=== PATIENT | male | born 1975 | race Caucasian/White ===

== ENCOUNTER 2020-03-15 14:58 | Emergency (ER) | payer SELFPAY ==
[~2020-03-15] VITALS: Ht 180.3 cm; Wt 86.4 kg
[~2020-03-15 14:58] MED LIST: AMOXICILLIN 50500 MG PO; AMOXICILLIN875 MG PO; CEPHALEXIN500 M1 PO; FLAGYL500 MG PO; FLEXERIL10 MG PO; LORTAB 5/500 501 TAB PO; NAPROSYN500 MG PO; NO HOME MEDICATIONS; NORCO 325 MG-51 TAB PO
[2020-03-15 15:17] VITALS: BP 135/85; PULSE 80; TEMP 98.2
== END 2020-03-15 16:00 | disposition home or self-care (01) ==
LOC: COL.ER 14:58
DX: M77.12 Lateral epicondylitis, left elbow (principal); F17.210 Nicotine dependence, cigarettes, uncomplicated; W22.8XXA Striking against or struck by other objects, initial encounter; Y93.39 Activity, other involving climbing, rappelling and jumping off
CPT/HCPCS: J1885

== ENCOUNTER 2020-11-28 15:43 | Emergency (ER) | payer SELFPAY ==
[~2020-11-28] VITALS: Ht 182.9 cm; Wt 88.6 kg
[2020-11-28 16:16] VITALS: BP 149/93; TEMP 98.2
[2020-11-28 16:55] VITALS: PULSE 79
== END 2020-11-28 16:57 | disposition home or self-care (01) ==
LOC: COL.ER 15:43
DX: S93.402A Sprain of unspecified ligament of left ankle, initial encounter (principal); F17.210 Nicotine dependence, cigarettes, uncomplicated; W01.198A Fall on same level from slipping, tripping and stumbling with subsequent striking against other object, initial encounter